=== PATIENT | female | born 1965 | race Caucasian/White ===

== ENCOUNTER 2020-02-16 15:52 | Emergency (ER) | payer OTHER ==
[~2020-02-16 15:52] MED LIST: Sodium Chloride Irrig Solution 250 ML BOT ONE
[2020-02-16] MEDS ORDERED: Lidocaine 1% 20 ML MDV ONE (16:09)
[2020-02-16] MEDS ORDERED: Adacel (T-DAP) 0.5 ML SYRINGE ONE (16:31)
[2020-02-16] MEDS ORDERED: Triple Antibiotic Oint 1 GM Packet ONE (16:49)
== END 2020-02-16 16:50 | disposition home or self-care (01) ==
LOC: MADERS 15:52
DX: S01.81XA Laceration without foreign body of other part of head, initial encounter (principal); Z79.82 Long term (current) use of aspirin; W22.03XA Walked into furniture, initial encounter
CPT/HCPCS: 12013; 90471; 90715; J2001